=== PATIENT | female | born 1980 | race Caucasian/White ===

== ENCOUNTER 2020-01-03 14:27 | Emergency (ER) | payer OTHER ==
[~2020-01-03] VITALS: Ht 157.5 cm; Wt 81.7 kg
[~2020-01-03 14:27] MED LIST: ACETAMINOPHEN-1 EAC1 PO; ESTRADIOL 1 MG T1 M1 PO; FLONASE 0.05%50 MCG; MEDROL DOSPAK21 TA1 PO; NEURONTIN 300300 M1; PHENERGAN 25 MG25 M1 PO; PROAIR HFA8.5 GM IH; PROZAC40 MG; TORADOL 10 MG T10 MG PO; ZYRTEC10 M5 PO
[2020-01-03] MEDS ORDERED: BUPROPION XL300 MG PO (14:34)
[2020-01-03 15:19] LABS: ABSOLUTE EOSINOPHILS 0.1 thou/uL (0.0-0.7); ABSOLUTE LYMPHOCYTES 1.9 thou/uL (0.8-5.3); ABSOLUTE MONOCYTES 0.4 thou/uL (0.0-1.2); ABSOLUTE NEUTROPHILS 4.2 thou/uL (1.6-8.1); BASOPHILS 0.4 %; EOSINOPHILS 1.2 %; HEMATOCRIT 36.8 % (37.0-47.0); HEMOGLOBIN 12.5 gm/dL (12.0-15.0); LYMPHOCYTES 28.5 %; MCH 29.9 pg (26.0-34.0); MCHC 33.9 g/dL (28.0-37.0); MONOCYTES 5.4 %; NUCLEATED RBCS 0 /100WBC; PLATELET COUNT* 312 thou/uL (150-400); POLYS 64.5 %; RBC 4.18 mil/uL (4.20-5.00); RDW-CV 14.6 % (10.5-14.5); WBC 6.6 thou/uL (4.0-11.0)
[2020-01-03 15:34] LABS: CALCIUM 8.8 mg/dL (8.5-10.1); CREATININE 1.1 mg/dL (0.6-1.3); POTASSIUM 3.6 mmol/L (3.5-5.1)
[2020-01-03 15:44] LABS: ALBUMIN 3.9 g/dL (3.4-5.0); MAGNESIUM 1.8 mg/dL (1.8-2.4); TOTAL BILIRUBIN 0.2 mg/dL (<0.1-1.0); TOTAL PROTEIN 7.6 g/dL (6.4-8.2)
[2020-01-03 16:36] LABS: URINE BILIRUBIN NEGATIVE (Negative); URINE BLOOD TRACE (Negative); URINE CLARITY CLEAR; URINE COLOR YELLOW; URINE GLUCOSE-RANDOM NEGATIVE (Negative); URINE KETONES NEGATIVE (Negative); URINE LEUKOCYTES-REFLEX NEGATIVE (Negative); URINE NITRITE-REFLEX NEGATIVE (Negative); URINE PROTEIN NEGATIVE (Negative); URINE SPECIFIC GRAVITY 1.025 (1.005-1.030); URINE UROBILINOGEN 0.2 E.U./dl (0.2-1.0)
[2020-01-03 16:52] LABS: AMP/METHAMP POSITIVE (Negative); BARBITURATES Negative (Negative); BENZODIAZEPINES Negative (Negative); COCAINE Negative (Negative); METHADONE Negative (Negative); OPIATES Negative (Negative); PCP Negative (Negative); THC Negative (Negative)
--- NOTE | 2020-01-03 17:05 | EKG ---
[place] [address] ELECTROCARDIOGRAM REPORT Name: CORDELIA CORONEL Room: [facility]#: [id number] Admission: 01/03/20 Attend Phys: Discharge: Date of : 84 Date of Service: 01/03/20 1452 Report #: [id number] THIS REPORT FOR: //name// [facility] ED Test Date: 2020-01-03 Test Time: 14:52:50 Pat Name: CORDELIA CORONEL Department: Room: Gender: F Atm Manager: : [id number] Requested By: Gertrude Cates Order Number: [id number] MD: Ramesh Jama Measurements Intervals [place] Rate: 90 P: 12 [place]: 145 QRS: -15 QRSD: 86 T: -1 QT: 361 QTc: 442 Interpretive Statements Sinus rhythm Borderline left axis deviation Low voltage, precordial leads Borderline T abnormalities, diffuse leads Compared to ECG 09/10/2013 11:30:07 Low QRS voltage now present T-wave abnormality now present Sinus tachycardia no longer present Electronically Signed On 01-03-2020 17:04:13 CDT by Ramesh Jama [email or web address] <ELECTRONICALLY SIGNED> By: Ramesh Jama MD, FACC 01/03/20 1704 1452 1452 Ramesh Jama MD, FAC /EPI
[2020-01-03] MEDS ORDERED: AMITRIPTYLINE H75 M1 PO (17:09)
[2020-01-03] MEDS ORDERED: SPIRONOLACTONE50 MG PO (17:09)
[2020-01-03 18:15] VITALS: BP 108/62
== END 2020-01-03 18:16 | disposition home or self-care (01) ==
LOC: M.ERS 14:27
PROVIDERS: Nurse Practitioner Family
DX: R56.9 Unspecified convulsions (principal); R51 Headache; Z90.710 Acquired absence of both cervix and uterus; Z90.49 Acquired absence of other specified parts of digestive tract

== ENCOUNTER 2020-09-21 13:13 | Emergency (ER) | payer OTHER ==
[~2020-09-21] VITALS: Ht 157.5 cm; Wt 83.9 kg
[~2020-09-21 13:13] MED LIST changes: +AMITRIPTYLINE H75 M1 PO; +BUPROPION XL300 MG PO; +SPIRONOLACTONE50 MG PO
[2020-09-21] MEDS ORDERED: PROAIR HFA8.5 GM INH (13:32)
[2020-09-21 14:50] VITALS: BP 109/69
[2020-09-21] MEDS ORDERED: ZPAK PO (14:54)
[2020-09-21] MEDS ORDERED: PREDNISONE 20 M20 M1 PO (14:54)
== END 2020-09-21 15:06 | disposition home or self-care (01) ==
LOC: M.ERS 13:13
DX: U07.1 COVID-19 (principal); E78.00 Pure hypercholesterolemia, unspecified; Z90.49 Acquired absence of other specified parts of digestive tract; Z90.710 Acquired absence of both cervix and uterus